=== PATIENT | female | born 1945 | race Caucasian/White ===

== ENCOUNTER 2019-08-27 13:28 | Emergency (ER) | payer OTHER ==
[2019-08-27 13:36] VITALS: BP 165/98; PULSE 91; TEMP 97.6; BMI 26.9
[2019-08-27] MEDS ORDERED: LIDOCAINE 1%/EPI 1:100000 (20 ML MULTI DOSE VIAL) INF ONE (14:36)
--- NOTE | 2019-08-27 14:43 | PDOC ---
History of Present Illness - General Chief Complaint: Injury Stated Complaint: FALL Time Seen by Provider: 08/27/19 13:49 History Source: Patient Exam Limitations: No Limitations Past History - Travel Traveled outside of the country in the last 30 days: No Close contact w/someone who was outside of country & ill: No - Past Medical History Allergies/Adverse Reactions: Allergies Allergy/AdvReac Type Severity Reaction Status Date / Time flaxseed Allergy Verified 08/27/19 13:39 levofloxacin Allergy Verified 08/27/19 13:38 nitrofurantoin Allergy Verified 08/27/19 13:39 pravastatin Allergy Verified 08/27/19 13:40 Quinolones Allergy Verified 08/27/19 13:39 simvastatin Allergy Verified 08/27/19 13:41 Vegapfn-Rik-Uoe Reductase Allergy Verified 08/27/19 13:37 Inhibitor Sulfa (Sulfonamide Allergy Verified 08/27/19 13:40 Antibiotics) Cancer: Yes (lung Upper left) COPD: No Thyroid Disease: Yes - Surgical History Appendectomy: Yes - Psycho Social/Smoking Cessation Hx Smoking History: Never smoked Review of Systems - Review of Systems Able to Perform ROS?: Yes Comments:: 08/27/19 14:37 CONSTITUTIONAL: Absent: fever, chills, diaphoresis, generalized weakness, malaise, loss of appetite HEENT: Absent: rhinorrhea, nasal congestion, throat pain, throat swelling, difficulty swallowing, mouth swelling, ear pain, eye pain, visual Changes CARDIOVASCULAR: Absent: chest pain, loss of consciousness, palpitations, irregular heart rate, peripheral edema RESPIRATORY: Absent: cough, shortness of breath, dyspnea with exertion, orthopnea, wheezing, stridor, hemoptysis MUSCULOSKELETAL: Absent: myalgia, arthralgia, joint swelling SKIN: Present: laceration Absent: rash, itching, pallor NEUROLOGIC: Absent: headache, focal weakness or paresthesias, dizziness, unsteady gait, seizure, mental status changes, bladder or bowel incontinence PSYCHIATRIC: Absent: anxiety, depression, suicidal or homicidal ideation, hallucinations. Is the patient limited Yoruba proficient: No *Physical Exam - Vital Signs Last Vital Signs Temp Pulse Resp BP Pulse Ox 97.6 F 91 H 18 165/98 97 08/27/19 13:32 08/27/19 13:32 08/27/19 13:32 08/27/19 13:32 08/27/19 13:32 - Physical Exam 08/27/19 14:40 GENERAL: Well developed, well nourished. Awake and alert. No acute distress. HEENT: Normocephalic.. PERRLA, EOMI. No conjunctival pallor. Sclera are non-icteric. Moist mucous membranes. Oropharynx is clear. NECK: Supple. Full ROM. No JVD. Carotid pulses 2+ and symmetric, without bruits. No thyromegaly. No lymphadenopathy. EXTREMITIES: No cyanosis. No clubbing. No edema. No calf tenderness. SKIN: 2cm eliptical laceration to the inferior L chin. Warm and dry. Normal capillary refill. No rashes. No jaundice. NEUROLOGICAL: Alert, awake, appropriate. Cranial nerves 2-12 intact. No deficits to light touch and temperature in face, upper extremities and lower extremities. No motor deficits in the in face, upper extremities and lower extremities. Normoreflexic in the upper and lower extremities. Normal speech. Toes are down- going bilaterally. Gait is normal without ataxia. PSYCHIATRIC: Cooperative. Good eye contact. Appropriate mood and affect. Procedures - Laceration/Wound Repair Left Distal Face Wound Length: to 2.5 cm Wound Explored: clean, no foreign body present Wound's Depth, Shape: superficial Irrigated w/ Saline: Yes Betadine Prep: No (allergic to betadine, alcohol prep pad) Anesthesia: 1% Lidocaine w/ Epi Amount of Anesthetic (ccs): 4 Wound Repaired With: Sutures Suture Size/Type: 5:0 Number of Sutures: 4 (simple interrupted) Layer Closure: No Sterile Dressing Applied: Yes Medical Decision Making - Medical Decision Making 08/27/19 14:41 The patient is a 73-year-old female who presents to the ER today for a laceration under her chin. She states that she was out shopping when she tripped on the corner of a clothing rack. She states that she fell into the rack and cut her chin. Denies loss of consciousness. She does not take any blood thinners. She states her last tetanus shot was last year. A/P: Laceration On exam patient with a 2 cm elliptical laceration to her left inferior chin. Tetanus is up-to-date Wound was cleaned under high-pressure normal saline. Wound was repaired with simple interrupted sutures. See procedure note. Mandible x-ray is negative for fracture. Patient instructed to return in 1 week to have the stitches taken out Discharge home I discussed the physical exam findings, ancillary test results and final diagnoses with the patient. I answered all of the patient's questions. The patient was satisfied with the care received and felt comfortable with the discharge plan and treatment plan. The Patient agrees to follow up with the primary care physician/specialist within 24-72 hours. Return precautions were given. Discharge - Discharge Information Problems reviewed: Yes Clinical Impression/Diagnosis: Laceration Condition: Stable Disposition: HOME - Admission No - Follow up/Referral Referrals: Francisco Javier Scales MD [Staff Physician] - - Patient Discharge Instructions Patient Printed Discharge Instructions: DI for Laceration Repair -- Simple Additional Instructions: You had your cut fixed today with stitches. Please return in 7 days to have your stitches removed. Keep the area dry for 24 hours Avoid soaking the face. Keep it dry when showering. Please keep the area clean and pat dry. You may use a very thin layer of bacitracin once a day. You may take Tylenol or Motrin as needed for pain. Follow the dosing instructions on the bottle. Return to the emergency department sooner if you have area of redness around the site, purulent drainage, fevers, or have any changes in your symptoms. - Post Discharge Activity
[2019-08-27] MEDS ORDERED: LIDOCAINE 1%/EPI 1:100000 (20 ML MULTI DOSE VIAL) ONE (14:51)
== END 2019-08-27 16:02 | disposition home or self-care (01) ==
LOC: JERFT 13:28
PROC: 0HQ1XZZ Repair Face Skin, External Approach (ICD-10-PCS; principal; 2019-08-27)
DX: S01.81XA Laceration without foreign body of other part of head, initial encounter (principal); W01.198A Fall on same level from slipping, tripping and stumbling with subsequent striking against other object, initial encounter; Y93.89 Activity, other specified; Y92.512 Supermarket, store or market as the place of occurrence of the external cause; Y99.8 Other external cause status; E07.9 Disorder of thyroid, unspecified; Z85.118 Personal history of other malignant neoplasm of bronchus and lung; Z88.8 Allergy status to other drugs, medicaments and biological substances; Z88.1 Allergy status to other antibiotic agents
CPT/HCPCS: 12011-25; 70100-TC-FY; 99281-25